=== PATIENT | female | born 1935 | race Hispanic/Latino ===

== ENCOUNTER → 2022-05-29 | Outpatient (CLI) | payer MEDICARE ==
[~2022-05-29] MED LIST: ASPI-25 PO; ATOR40TA69 PO; GLIP10TA9 PO; LOSA50TA64 PO; METO25TA6 PO; SITA100T12 PO
== END | disposition home or self-care (01) ==
LOC: RAH 09:18
PROVIDERS: ATTEND Family Medicine
DX: R13.13 Dysphagia, pharyngeal phase (principal); R63.30 Feeding difficulties, unspecified; R47.81 Slurred speech; G45.9 Transient cerebral ischemic attack, unspecified; M62.81 Muscle weakness (generalized); Z86.73 Personal history of transient ischemic attack (TIA), and cerebral infarction without residual deficits
CPT/HCPCS: 74230; 92611